=== PATIENT | female | born 1995 | race African-American/Black ===

== ENCOUNTER 2018-10-31 15:16 | Inpatient (IN) ==
[2018-10-31] MEDS ORDERED: MEPERIDINE 50 MG/1 ML VIAL IV PRN (15:29)
[2018-10-31] MEDS ORDERED: ONDANSETRON 4 MG/2 ML VIAL IV PRN ×2 (15:29→18:47)
[2018-10-31] MEDS ORDERED: BUTORPHANOL 2 MG/ML VIAL IV PRN (15:29)
[2018-10-31 16:03] LABS: Basophils % 0.2 % (0.0-0.8); Eosinophils # 0.1 10*3/uL (0.0-0.87); Hematocrit 30.2 VOL% (35.7-47.0); Hemoglobin 9.7 GM/DL (12.0-16.0); Immature Granulocytes % 0.3 %; Immature Granulocytes Absolute 0.02 #; Lymphocytes # 1.2 10*3/uL (1.4-4.0); Lymphocytes % 20.1 % (21.3-54.2); Mean Corpuscular HGB Conc 32.1 GM/DL (32-36); Mean Corpuscular Volume 88.3 FL (87-102); Mean Platelet Volume 12.2 FL (9.6-12.0); Monocytes % 8.4 % (1.7-12.7); Platelet Count 197 T/CUMM (130-400); Red Blood Count 3.42 MC/CUMM (3.8-5.5); Red Cell Distribution Width 13.2 % (9.3-17.3)
[2018-10-31] MEDS ORDERED: CITRIC ACID/SODIUM CITRATE 30 ML UDCUP PO ONE (16:18)
[2018-10-31] MEDS ORDERED: FAMOTIDINE 20 MG/2 ML VIAL IV ONE (16:18)
[2018-10-31] MEDS ORDERED: LACTATED RINGERS 1,000 ML IV ONE (16:18)
[2018-10-31] MEDS ORDERED: hydrOXYzine HCL 25 MG/1 ML VIAL IM PRN (16:19)
[2018-10-31] MEDS ORDERED: PROMETHAZINE 25 MG/1 ML VIAL IM ONE (16:19)
[2018-10-31] MEDS ORDERED: diphenhydrAMINE 50 MG/1 ML VIAL IV PRN ×2 (16:19)
[2018-10-31] MEDS ORDERED: ePHEDrine 50 MG/ML AMP IV PRN (16:19)
[2018-10-31 16:25] LABS: Alanine Aminotransferase 13 U/L (13-56); Albumin 2.3 G/DL (3.4-5.0); Alkaline Phosphatase 150 U/L (45-117); Aspartate Amino Transferase 15 U/L (0-37); Bilirubin,Total < 0.39 MG/DL (0.2-1.0); Blood Urea Nitrogen 11 MG/DL (7-18); Calcium 9.5 MG/DL (8.5-10.1); Glucose 71 MG/DL (74-106); Osmolality,Calculated 279.1 MOS/KG (273-304); Total Protein 6.6 G/DL (6.4-8.3)
[2018-10-31 16:26] LABS: INR 0.9; PT Patient Result 9.3 SECS; Partial Thromboplastin Time 28.6 SECS (20-40)
[2018-10-31 16:41] LABS: Bilirubin,Direct < 0.100 MG/DL (0.0-0.20); Uric Acid 5.7 MG/DL (2.6-6.0)
[2018-10-31] MEDS ORDERED: OXYTOCIN/LR 30 UNIT/1,000 ML BAG IV ONE (17:01)
[2018-10-31] MEDS ORDERED: OXYTOCIN 10 UNIT/ML VIAL IM ONE (17:01)
[2018-10-31] MEDS ORDERED: ceFAZolin 2,000 MG in PREMIX 1 EACH IV ONE (17:01)
[2018-10-31] MEDS ORDERED: METOCLOPRAMIDE 10 MG/2 ML VIAL ONE (17:39)
[2018-10-31] MEDS ORDERED: ACETAMINOPHEN 325 MG TABLET PO PRN (18:47)
[2018-10-31] MEDS ORDERED: SIMETHICONE CHEW 80 MG TABLET PO PRN (18:47)
[2018-10-31] MEDS ORDERED: IBUPROFEN 800 MG TABLET PO PRN (18:47)
[2018-10-31] MEDS ORDERED: RHO(D) IMMUNE GLOBULIN 300 MCG SYRINGE IM ONE (18:47)
[2018-10-31] MEDS ORDERED: OXYTOCIN/LR 20 UNIT/1,000 ML BAG IV ONE (18:47)
[2018-10-31] MEDS ORDERED: LACTATED RINGERS 1,000 ML IV SCH (19:00)
[2018-10-31] MEDS ORDERED: PHENYLEPHRINE 1 MG/10 ML SYRINGE IV ONE (19:01)
[2018-10-31] MEDS ORDERED: BUPIVACAINE 0.25% 50 ML VIAL ONE (19:01)
[2018-10-31] MEDS ORDERED: BUPIVACAINE SPINAL 0.75% 2 ML AMP SPINAL ONE (19:02)
[2018-10-31] MEDS ORDERED: fentaNYL 100 MCG/2 ML VIAL ONE (19:02)
[2018-10-31] MEDS ORDERED: DEXAMETHASONE 4 MG/1 ML VIAL ONE (19:02)
[2018-10-31] MEDS ORDERED: MORPHINE 10 MG/10 ML VIAL ONE (19:02)
[2018-10-31] MEDS ORDERED: EPINEPHrine 1 MG/ML VIAL ONE (19:03)
[2018-10-31 19:12] LABS: Apearance,Urine CLEAR (Clear); Bacteria,Urine Occasional /HPF (Few); Bilirubin,Urine Negative (Negative); Blood, Urine Small mg/dL (Negative); Glucose,Urine (UA) Negative (Negative); Hyaline Casts,Urine 8 /LPF (0-3); Ketones,Urine Negative (Negative); Mucus,Urine Occasional /LPF (Occasional); Nitrite,Urine Negative (Negative); Protein,Urine >=500 MG/DL; RBC,Urine 2 /HPF (0-4); Squamous Epithelial Cell,Urine Occasional /HPF (0-10); Urine Color Yellow (Yellow); Urine Urobilinogen < 2.0 EU/DL (0.2-1.0); WBC,Urine 1 /HPF (0-6)
[2018-10-31] MEDS ORDERED: FUROSEMIDE 20 MG/2 ML VIAL ONE (19:16)
[2018-10-31 19:17] LABS: Cord Arterial Blood HCO3 23.7 MMOL/L
[2018-10-31 19:26] LABS: Cord Venous Blood HCO3 23.7 MMOL/L; Cord Venous Blood PCO2 45.2 MMHG; Cord Venous Blood PO2 28.9 MMHG
[2018-10-31] MEDS ORDERED: hydrALAZINE 20 MG/1 ML VIAL IV ONE (20:50)
[2018-10-31] MEDS ORDERED: LABETALOL 100 MG TABLET PO SCH (21:00)
[2018-11-01] MEDS ORDERED: OXYTOCIN/LR 20 UNIT/1,000 ML BAG IV SCH (01:00)
[2018-11-01] MEDS ORDERED: LACTATED RINGERS 1,000 ML IV SCH (01:00)
[2018-11-01] MEDS: FUROSEMIDE 40 MG/4 ML VIAL IV SCH ×3 (02:21→17:37)
[2018-11-01 02:39] LABS: Basophils % 0.2 % (0.0-0.8); Eosinophils % 0.1 % (0.00-10.9); Hematocrit 35.3 VOL% (35.7-47.0); Hemoglobin 11.2 GM/DL (12.0-16.0); Immature Granulocytes % 0.5 %; Immature Granulocytes Absolute 0.06 #; Lymphocytes # 1.1 10*3/uL (1.4-4.0); Lymphocytes % 8.1 % (21.3-54.2); Mean Corpuscular HGB Conc 31.7 GM/DL (32-36); Mean Corpuscular Volume 88.3 FL (87-102); Mean Platelet Volume 12.8 FL (9.6-12.0); Monocytes % 3.7 % (1.7-12.7); Neutrophils % 87.4 % (38.7-73.9); Platelet Count 235 T/CUMM (130-400); Red Cell Distribution Width 13.1 % (9.3-17.3); White Blood Count 12.9 T/CUMM (4-12)
[2018-11-01] MEDS: DOCUSATE SODIUM 100 MG CAPSULE PO SCH ×3 (04:40→20:22)
[2018-11-01 07:53] LABS: Basophils % 0.1 % (0.0-0.8); Eosinophils % 0.1 % (0.00-10.9); Hematocrit 32.4 VOL% (35.7-47.0); Hemoglobin 10.4 GM/DL (12.0-16.0); Immature Granulocytes % 0.7 %; Lymphocytes # 1.4 10*3/uL (1.4-4.0); Lymphocytes % 10.3 % (21.3-54.2); Mean Corpuscular HGB Conc 32.1 GM/DL (32-36); Mean Corpuscular Volume 87.1 FL (87-102); Mean Platelet Volume 12.1 FL (9.6-12.0); Monocytes % 5.8 % (1.7-12.7); Platelet Count 224 T/CUMM (130-400); Red Blood Count 3.72 MC/CUMM (3.8-5.5); Red Cell Distribution Width 13.2 % (9.3-17.3); White Blood Count 13.5 T/CUMM (4-12)
[2018-11-01] MEDS: METOCLOPRAMIDE 10 MG TABLET PO SCH ×2 (08:21→16:49)
[2018-11-01] MEDS: MULTIVITAMIN (PRENATAL) TABLET PO SCH (08:21)
[2018-11-01] MEDS: MAGNESIUM HYDROXIDE SUSP 30 ML UDCUP PO PRN (20:22)
[2018-11-02] MEDS: METOCLOPRAMIDE 10 MG TABLET PO SCH ×2 (01:30→08:51)
[2018-11-02 07:54] VITALS: BP 149/75
[2018-11-02] MEDS: DOCUSATE SODIUM 100 MG CAPSULE PO SCH (08:49)
[2018-11-02] MEDS: MULTIVITAMIN (PRENATAL) TABLET PO SCH (08:49)
[2018-11-02] MEDS: MAGNESIUM HYDROXIDE SUSP 30 ML UDCUP PO PRN (08:51)
[2018-11-02] MEDS ORDERED: DIPH/TET/ACEL PERT BOOSTER VACCINE 0.5 ML VIAL IM ONE (11:35)
== END 2018-11-02 14:30 | disposition home or self-care (01) | DRG 540 ==
LOC: N.LDOUT 15:16 → N.LD 15:21 → N.OB 22:39
PROVIDERS: ADMIT Obstetrics & Gynecology; ATTEND Obstetrics & Gynecology
PROC: LDCSECT (ICD-10-PCS; 2018-10-31 17:30)